=== PATIENT | female | born 1940 | race Caucasian/White ===

== ENCOUNTER 2017-01-17 19:29 | Inpatient (IN) | payer MEDICARE, OTHER ==
[~2017-01-17] VITALS: Ht 152.4 cm; Wt 58.1 kg
[~2017-01-17 19:29] MED LIST: BENA40TA2 PO; DILT180C73 PO; LEVO75TA7 PO; PRAV20TA4 PO
[2017-01-17] MEDS ORDERED: IV NS 0.9% 500 ML BAG IV ONE (20:00)
[2017-01-17 20:13] LABS: BASOPHILS % (AUTO) 0.3 % (0.0-2.0); EOSINOPHILS # (AUTO) 0.1 /CMM (0.0-0.7); EOSINOPHILS % (AUTO) 2.2 % (0.0-6.0); HEMATOCRIT 45 % (33-45); HEMOGLOBIN 14.9 g/dL (11.5-14.8); LYMPHOCYTES # (AUTO) 1.6 /CMM (0.8-4.8); LYMPHOCYTES % (AUTO) 28.6 % (20.0-44.0); MEAN CORPUSCULAR HEMOGLOBIN 29 PG (26.0-33.0); MEAN CORPUSCULAR HGB CONC 33 g/dl (31.0-36.0); MEAN CORPUSCULAR VOLUME 87 fL (82-100); MONOCYTES # (AUTO) 0.6 /CMM (0.1-1.30); MONOCYTES % (AUTO) 10.4 % (2.0-12.0); NEUTROPHILS # (AUTO) 3.2 /CMM (1.8-8.9); NEUTROPHILS % (AUTO) 58.5 % (43.0-81.0); PLATELET COUNT (AUTO) 226 /CMM (150-450); RDW COEFFICIENT OF VARIATION 14.8 (11.5-15.0); RED BLOOD CELL COUNT(AUTO) 5.17 MIL/uL (4.0-5.2); WHITE BLOOD COUNT (AUTO) 5.5 K/uL (4.3-11.0)
[2017-01-17 20:21] LABS: CALCIUM, SERUM 9.4 mg/dL (8.5-10.1); CARBON DIOXIDE 35 mmol/L (21-32); CHLORIDE 104 mmol/L (98-107); CREATININE 0.9 mg/dL (0.6-1.3); GLUCOSE 200 mg/dL (74-106); SODIUM SERUM 142 mmol/L (136-145); UREA NITROGEN, BLOOD 29 mg/dL (7-18)
[2017-01-17 20:22] LABS: ALCOHOL, BLOOD < 3 mg/dL (0-0)
[2017-01-17 20:30] LABS: TROPONIN I < 0.017 ng/mL (0.00-0.056)
[2017-01-17] MEDS ORDERED: ACETAMINOPHEN 325 MG TABLET PO STA (21:06)
[2017-01-17] MEDS ORDERED: ACETAMINOPHEN 325 MG TABLET ONE (21:20)
[2017-01-17] MEDS ORDERED: MAGNESIUM HYDROXIDE 30 ML UDC PO PRN (22:30)
[2017-01-17] MEDS ORDERED: MAG HYDROX/AL HYDROX/SIMETH 30 ML UDC PO PRN (22:30)
--- NOTE | 2017-01-17 22:30 | NUR ---
GPS WARPMAN NOTES: ADMITTED A 76 YO FEMALE FROM HOME, BROUGHT IN BY DAUGHTER TO THE EMERGENCY DEPT OF [facility]. PATIENT PLACED ON 5150 HOLD FOR GRAVE DISABILITY. PER HOLD, THE PATIENT HAS BEEN INCREASINGLY CONFUSED AND PROGRESSIVELY DECLINING OVER THE PAST SEVERAL WEEKS. , PATIENT IS CONFUSED, DISORGANIZED, DISORIENTED, HAS DIFFICULTY PERFORMING SIMPLE TASKS, NOT BEING ABLE TO TAKE CARE OF HERSELF, ASLEEP ALL THE TIME, NOT EATING OR DRINKING, SHORT ATTENTION SPAN AND CANNOT FOCUS. PATIENT WAS BROUGHT IN THE UNIT VIA GURNEY. DAUGHTER JORGE CAME WITH THE PATIENT. PATIENT THEN USHERED TO THE BED AND CHANGED TO A PATIENT'S GOWN. UPON FACE TO FACE ASSESSMENT,PATIENT PRESENTS AN APPROPRIATE AFFECT, ALERT AND ORIENTED X2-3, WITH NOTED EPISODES OF CONFUSION, DISHEVELED AND UNKEMPT. TALKS ABOUT A CERTAIN TOPIC THEN JUMPS TO ANOTHER. SHE ADMITS TO BEING ANXIOUS AND FEARFUL IN THE PRESENCE OF DOCTORS AND NURSES, HENCE THE REASON WHY SHE HAS HIGH BP READING. BELONGINGS AND CONTRABAND CHECKED. SKIN AND BODY ASSESSMENT DONE. NOTED SOME SCABS IN DIFFERENT BODY PARTS HOWEVER, NO OPEN WOUND NOTED THIS TIME. PICTURES TAKEN AND PLACED IN THE CHART. PER PATIENT'S DAUGHTER JORGE, PATIENT HAS NO SIGNIFICANT MEDICAL PROBLEMS AND IS ONLY DEALING WITH BIPOLAR AND ANXIETY PSYCHIATRIC PROBLEMS UNDER THE CARE OF DR. IGNACIO VALIENTE. ORIENTATION TO UNIT RULES POLICIES AND CARE PLANS DONE. BP OF PATIENT CHECKED 231/87 HR OF 67, O2 SAT-97% TEMP OF 98.7 RR-19. PATIENT THEN MADE TO SETTLE IN THE ROOM. MED RECONCILIATION DONE. Q15 MIN CHECKS INITIATED. SAFETY AND FALL PRECAUTIONS OBSERVED. CALL SEXTON PLACED WITHIN HER REACH, PROVIDED HER WITH WATER AND ENCOURAGED MORE ORAL FLUID INTAKE. CARE PLAN INITIATED. AMBIEN 5 MG GIVEN AT [address] VALIENTE'S INITIAL ORDER. RECHECK OF PATIENTS BLOOD PRESSURE AT 0100- 213/88 WITH A HR OF 65, PER PATIENT IS HAS BEEN THIS HIGH BECAUSE OF HER BEING IN THE HOSPITAL AND WITH DOCTORS AROUND. PATIENT DOES NOT HAVE ANY OTHER COMPLAINS THIS TIME. NO PAIN, NO NUMBNESS, NO UNUSUAL SENSATION THIS TIME. SAFETY ENVIRONMENTAL CHECK DONE. WILL MONITOR PATIENT FOR MOOD, SAFETY AND BEHAVIOR.
[2017-01-17] MEDS ORDERED: ZOLPIDEM TARTRATE 5 MG TABLET ONE (23:35)
[2017-01-17] MEDS: ZOLPIDEM TARTRATE 5 MG TABLET PO PRN (23:38)
[2017-01-17] MEDS ORDERED: BUPR75TA8 PO (23:52)
[2017-01-17] MEDS ORDERED: DIVA500T7 PO (23:52)
[2017-01-17] MEDS ORDERED: DIVA250T6 PO (23:52)
[2017-01-17] MEDS ORDERED: OLAN5TAB3 PO (23:52)
[2017-01-18] MEDS ORDERED: ZOLPIDEM TARTRATE 5 MG TABLET ONE (02:17)
[2017-01-18] MEDS ORDERED: ACETAMINOPHEN 325 MG TABLET ONE (02:18)
[2017-01-18] MEDS: ZOLPIDEM TARTRATE 5 MG TABLET PO PRN (02:21)
[2017-01-18] MEDS: ACETAMINOPHEN 325 MG TABLET PO PRN (02:22)
[2017-01-18 08:00] VITALS: BP 199/95
[2017-01-18 08:08] LABS: CREATININE 0.6 mg/dL (0.6-1.3)
[2017-01-18 08:17] LABS: CHOLESTEROL 181 mg/dL (<200); HDL CHOLESTEROL 74 mg/dL (40-60); LDL 85 mg/dL (0-99); TRIGLYCERIDES 66 mg/dL (30-150)
[2017-01-18] MEDS: LISINOPRIL (20MG) 20 MG TABLET PO SCH (11:01)
[2017-01-18] MEDS: AMLODIPINE BESYLATE 10 MG TABLET PO SCH (11:01)
--- NOTE | 2017-01-18 11:56 | NUR ---
GPS RN NOTES/ PATIENT BP RETAKEN STILL BP HIGH LEFT ARM 206/73, P-62, RIGHT ARM BP -200/77, -63, PATIENT HAS NO S/S OF HYPERTENSION, NOTIFIED DR ROGERS, AND GET NEW ORDER CLONIDINE 0.3 MG PO QID, ORDER TAKEN, AND CARRIED OUT.
[2017-01-18] MEDS: CLONIDINE HCL 0.1 MG TABLET PO SCH ×3 (12:12→20:11)
[2017-01-18 13:57] VITALS: BP 113/58
[2017-01-18] MEDS: ARIPIPRAZOLE 5 MG TABLET PO SCH (13:57)
--- NOTE | 2017-01-18 13:58 | NUR ---
GPS RN NOTES RECHECKED PATIENT BP 113/58, P-62, R-18, O2 -95 ROOM AIR, PATIENT RESTING IN THE BED , NO ACUTE DISTRESS, NO RESPIRATORY DISTRESS, SAFETY PRECAUTION MAINTAINED ALL THE TIME, CALL SEXTON NEAR TO REACH, ENCOURAGED TO INCREASE FLUID INTAKE.
[2017-01-18 16:00] VITALS: BP 118/60
--- NOTE | 2017-01-18 19:33 | NUR ---
GPS/RN NOTE: PATIENT RESTING IN BED, DAUGHTER JORGE VISITS. NO APPARENT DISTRESS NOTED. AWAKE, ALERT, ORIENTED X 2-3.
[2017-01-18 20:10] VITALS: BP 120/62
[2017-01-18] MEDS ORDERED: DIVALPROEX SODIUM 250 MG TABLET.DR PO SCH (22:00)
[2017-01-18] MEDS ORDERED: DIVALPROEX SODIUM 500 MG TABLET.DR PO SCH (22:00)
[2017-01-19 08:00] VITALS: BP 160/89
[2017-01-19] MEDS: LEVOTHYROXINE SODIUM 75 MCG TABLET PO SCH (08:43)
[2017-01-19] MEDS: AMLODIPINE BESYLATE 10 MG TABLET PO SCH (08:43)
[2017-01-19] MEDS: ARIPIPRAZOLE 5 MG TABLET PO SCH (08:44)
[2017-01-19] MEDS: DILTIAZEM HCL CD 180 MG PO SCH (08:44)
[2017-01-19] MEDS: CLONIDINE HCL 0.1 MG TABLET PO SCH ×4 (09:00→21:00)
[2017-01-19] MEDS ORDERED: ATORVASTATIN 10 MG TABLET PO SCH (09:00)
--- NOTE | 2017-01-19 09:08 | NUR ---
Initial discharge plan: Pt. resides with her daughter, Leora at [id number] [address] and wants to return upon discharge. SW spoke with pt's daughter, Leora [phone] , who confirmed that the patient is able to return home and she will pick him up when ready. FLIP will follow up with MD and will arrange for a safe and proper discharge.
[2017-01-19] MEDS: BENAZEPRIL HCL 20 MG TABLET PO SCH (11:45)
--- NOTE | 2017-01-19 14:30 | NUR ---
george held x [address] alatorre in to see pt.
[2017-01-19 16:00] VITALS: BP 142/57
[2017-01-19] MEDS: LISINOPRIL (20MG) 20 MG TABLET PO SCH (17:49)
[2017-01-19 19:47] LABS: BILIRUBIN,DIRECT 0.1 mg/dL (0.0-0.2); BILIRUBIN,TOTAL 0.3 mg/dL (0.2-1.0)
[2017-01-19 19:48] LABS: ALBUMIN 3.1 g/dL (3.4-5.0); TOTAL PROTEIN, SERUM 6.6 g/dL (6.4-8.2)
[2017-01-19 20:00] VITALS: BP 144/63
[2017-01-19 20:39] VITALS: BP 144/63
[2017-01-19] MEDS: DIVALPROEX SODIUM 500 MG TABLET.DR PO SCH (21:12)
--- NOTE | 2017-01-19 21:14 | NUR ---
GPS/LAB SUPPORT TECHNICIAN NOTES: PT. REFUSED HS CLONIDINE 0.3MG PO ORDERED. OFFERED 3X. EXPLAINED RISK AND BENEFITS. PT. STILL REFUSED. NO DISTRESS NOTED. VS WITHIN NORMAL LIMITS. WILL CONTINUE TO MONITOR.
[2017-01-20 08:00] VITALS: BP 176/71
[2017-01-20] MEDS: LEVOTHYROXINE SODIUM 75 MCG TABLET PO SCH (08:11)
[2017-01-20] MEDS: ARIPIPRAZOLE 5 MG TABLET PO SCH (08:12)
[2017-01-20] MEDS: DILTIAZEM HCL CD 180 MG PO SCH (08:13)
[2017-01-20] MEDS: LISINOPRIL (20MG) 20 MG TABLET PO SCH (08:13)
[2017-01-20] MEDS: BENAZEPRIL HCL 20 MG TABLET PO SCH (08:13)
[2017-01-20] MEDS: AMLODIPINE BESYLATE 10 MG TABLET PO SCH (08:13)
[2017-01-20] MEDS ORDERED: VENLAFAXINE XR 75 MG CAP.SR.24H PO SCH (09:00)
[2017-01-20] MEDS ORDERED: VENLAFAXINE XR 37.5 MG CAP.SR.24H PO SCH (09:00)
[2017-01-20] MEDS: CLONIDINE HCL 0.1 MG TABLET PO SCH (09:45)
--- NOTE | 2017-01-20 09:45 | NUR ---
CO SUPERVISOR GROUNDS AND LANDSCAPE-NOTES DR. PEACE IN THE UNIT AT THIS TIME AND VERIFIED CLONIDINE ORDER . PER MD WILL CONTINUE GIVING CLONIDINE ORDER WITH OTHER HTN MEDICATIONS.
--- NOTE | 2017-01-20 10:09 | NUR ---
CHLORINE CELLS OPERATOR-NOTES EFFEXOR Xr 37.5MG P.O NOT ADMINISTER. MEDICATIONS COMES WITH 75MG CAPSULE. PHARMACIES ( [facility] ) MADE AWARE AND STATED " I NEEDS TO CHECK". STILL AWAITING.
[2017-01-20] MEDS: METOPROLOL TARTRATE 25 MG TABLET PO SCH ×2 (11:00→21:00)
[2017-01-20 11:41] VITALS: BP 100/51
--- NOTE | 2017-01-20 12:09 | NUR ---
JIVE DEVELOPER-NOTES DR. PEACE MADE AWARE OF PATIENT BP OF 100/51 AND PULSE 56 AFTER GIVEN ALL HTN MEDICATIONS INCLUDING CLONIDINE 0.3MG P.O WITH THE ORDER TO CHANGE CLONIDINE 0.3MG P.O TO PRN FOR SBP > 170. NOTED AND CARRIED OUT.
[2017-01-20] MEDS: VENLAFAXINE XR 37.5 MG CAP.SR.24H PO SCH (12:20)
[2017-01-20] MEDS ORDERED: CLONIDINE HCL 0.1 MG TABLET PO PRN (12:30)
--- NOTE | 2017-01-20 14:12 | NUR ---
DR. VALIENTE CAME IN THE UNIT AND EXAMINED PT. AND ORDERED 1:1
[2017-01-20 16:00] VITALS: BP 119/50
[2017-01-20 21:00] VITALS: BP 115/60
[2017-01-20] MEDS: DIVALPROEX SODIUM 500 MG TABLET.DR PO SCH (21:23)
[2017-01-21 08:00] VITALS: BP 137/58
[2017-01-21] MEDS: LISINOPRIL (20MG) 20 MG TABLET PO SCH (09:00)
[2017-01-21] MEDS: AMLODIPINE BESYLATE 10 MG TABLET PO SCH (09:00)
[2017-01-21] MEDS: DILTIAZEM HCL CD 180 MG PO SCH (09:00)
[2017-01-21] MEDS: METOPROLOL TARTRATE 25 MG TABLET PO SCH ×2 (09:00→21:40)
[2017-01-21] MEDS: BENAZEPRIL HCL 20 MG TABLET PO SCH (09:00)
[2017-01-21] MEDS: VENLAFAXINE XR 37.5 MG CAP.SR.24H PO SCH (09:17)
[2017-01-21] MEDS: LEVOTHYROXINE SODIUM 75 MCG TABLET PO SCH (09:17)
[2017-01-21] MEDS ORDERED: LORAZEPAM 0.5 MG TABLET PO PRN (13:00)
[2017-01-21 16:00] VITALS: BP_SYST 142; BP_SYST 166; BP_DIAS 55; BP_DIAS 80
[2017-01-21 20:00] VITALS: BP 142/58
[2017-01-21] MEDS: DIVALPROEX SODIUM 500 MG TABLET.DR PO SCH (21:41)
[2017-01-22 07:07] VITALS: BP 142/66
--- NOTE | 2017-01-22 07:16 | NUR ---
RN GPS NOTES PATIENT RESTING HER BED, NO ACUTE DISTRESS NOTED ,NO CHANGES IN STATUS. ALL NEEDS ATTENDED ANTICIPATED . REMANIED AT BED SITE SITTER 1:1 FOR SAFETY, PT. COMPLY WITH DUE MEDS ,WILL ENDORSE TO NEXT SHIFT FOR CONTINUITY CARE
[2017-01-22 08:00] VITALS: BP 171/75
[2017-01-22] MEDS: LEVOTHYROXINE SODIUM 75 MCG TABLET PO SCH (08:04)
[2017-01-22] MEDS: METOPROLOL TARTRATE 25 MG TABLET PO SCH ×2 (08:05→20:26)
[2017-01-22] MEDS: LISINOPRIL (20MG) 20 MG TABLET PO SCH (08:05)
[2017-01-22] MEDS: VENLAFAXINE XR 37.5 MG CAP.SR.24H PO SCH (08:06)
[2017-01-22] MEDS: DILTIAZEM HCL CD 180 MG PO SCH (08:06)
[2017-01-22] MEDS: AMLODIPINE BESYLATE 10 MG TABLET PO SCH (08:06)
[2017-01-22] MEDS: BENAZEPRIL HCL 20 MG TABLET PO SCH (08:06)
[2017-01-22 15:53] VITALS: BP 118/53
[2017-01-22 20:00] VITALS: BP 137/57
[2017-01-22] MEDS: DIVALPROEX SODIUM 500 MG TABLET.DR PO SCH (21:31)
--- NOTE | 2017-01-23 01:19 | NUR ---
Pt has been with depressed mood & flat affect. She has mostly been selectively mute since last night.
[2017-01-23 07:11] LABS: BASOPHILS % (AUTO) 0.6 % (0.0-2.0); EOSINOPHILS # (AUTO) 0.1 /CMM (0.0-0.7); EOSINOPHILS % (AUTO) 2.1 % (0.0-6.0); HEMATOCRIT 39 % (33-45); LYMPHOCYTES # (AUTO) 2.6 /CMM (0.8-4.8); LYMPHOCYTES % (AUTO) 37.3 % (20.0-44.0); MEAN CORPUSCULAR HEMOGLOBIN 29 PG (26.0-33.0); MEAN CORPUSCULAR HGB CONC 34 g/dl (31.0-36.0); MEAN CORPUSCULAR VOLUME 87 fL (82-100); MONOCYTES # (AUTO) 0.7 /CMM (0.1-1.30); MONOCYTES % (AUTO) 9.6 % (2.0-12.0); NEUTROPHILS # (AUTO) 3.5 /CMM (1.8-8.9); NEUTROPHILS % (AUTO) 50.4 % (43.0-81.0); PLATELET COUNT (AUTO) 178 /CMM (150-450); RDW COEFFICIENT OF VARIATION 15.7 (11.5-15.0); RED BLOOD CELL COUNT(AUTO) 4.42 MIL/uL (4.0-5.2)
[2017-01-23 07:32] LABS: CALCIUM, SERUM 9.1 mg/dL (8.5-10.1); CARBON DIOXIDE 33 mmol/L (21-32); CHLORIDE 106 mmol/L (98-107); CREATININE 0.4 mg/dL (0.6-1.3); GLUCOSE 86 mg/dL (74-106); POTASSIUM 3.5 mmol/L (3.5-5.1); SODIUM SERUM 142 mmol/L (136-145); UREA NITROGEN, BLOOD 29 mg/dL (7-18)
[2017-01-23 08:18] VITALS: BP 150/57
[2017-01-23] MEDS: LISINOPRIL (20MG) 20 MG TABLET PO SCH (08:55)
[2017-01-23] MEDS: DILTIAZEM HCL CD 180 MG PO SCH (08:56)
[2017-01-23] MEDS: LEVOTHYROXINE SODIUM 75 MCG TABLET PO SCH (08:56)
[2017-01-23] MEDS: AMLODIPINE BESYLATE 10 MG TABLET PO SCH (08:56)
[2017-01-23] MEDS: METOPROLOL TARTRATE 25 MG TABLET PO SCH ×2 (08:57→21:00)
[2017-01-23] MEDS: VENLAFAXINE XR 37.5 MG CAP.SR.24H PO SCH (08:57)
[2017-01-23] MEDS: BENAZEPRIL HCL 20 MG TABLET PO SCH (08:58)
[2017-01-23 16:00] VITALS: BP 133/71
[2017-01-23 19:42] VITALS: BP 150/57
[2017-01-23] MEDS: DIVALPROEX SODIUM 500 MG TABLET.DR PO SCH (21:30)
[2017-01-24] MEDS: LEVOTHYROXINE SODIUM 75 MCG TABLET PO SCH (07:30)
[2017-01-24 08:00] VITALS: BP_SYST 147; BP_SYST 171; BP_DIAS 57; BP_DIAS 62
[2017-01-24] MEDS: LISINOPRIL (20MG) 20 MG TABLET PO SCH (08:54)
[2017-01-24] MEDS: DILTIAZEM HCL CD 180 MG PO SCH (08:54)
[2017-01-24] MEDS: VENLAFAXINE XR 37.5 MG CAP.SR.24H PO SCH (08:54)
[2017-01-24] MEDS: AMLODIPINE BESYLATE 10 MG TABLET PO SCH (08:55)
[2017-01-24] MEDS: BENAZEPRIL HCL 20 MG TABLET PO SCH (08:55)
[2017-01-24] MEDS: METOPROLOL TARTRATE 25 MG TABLET PO SCH ×2 (09:26→21:00)
[2017-01-24 16:00] VITALS: BP 147/57
[2017-01-24 20:16] VITALS: BP 147/59
--- NOTE | 2017-01-24 21:52 | NUR ---
GPS RN: PATIENT IN THE ROOM, QUIET AND DEPRESSED. LOPRESSOR MEDICATION NOT GIVEN, PATIENTS DIASTOLIC AND HEART RATE IS LOW. BP 147/59, HEART RATE OF 51. EXPLAINED TO PATIENT THE REASON FOR NOT ADMINISTERING IT. PATIENT VERBALIZED UNDERSTANDING. WILL CONTINUE TO MONITOR PATIENT'S STATUS.
[2017-01-24] MEDS: DIVALPROEX SODIUM 250 MG TABLET.DR PO SCH (22:00)
[2017-01-25 08:00] VITALS: BP 144/59
[2017-01-25] MEDS: DILTIAZEM HCL CD 180 MG PO SCH (09:11)
[2017-01-25] MEDS: VENLAFAXINE XR 37.5 MG CAP.SR.24H PO SCH (09:11)
[2017-01-25] MEDS: LEVOTHYROXINE SODIUM 75 MCG TABLET PO SCH (09:11)
[2017-01-25] MEDS: LISINOPRIL (20MG) 20 MG TABLET PO SCH (09:11)
[2017-01-25] MEDS: AMLODIPINE BESYLATE 10 MG TABLET PO SCH (09:11)
[2017-01-25] MEDS: METOPROLOL TARTRATE 25 MG TABLET PO SCH ×2 (09:12→21:25)
[2017-01-25] MEDS: BENAZEPRIL HCL 20 MG TABLET PO SCH (09:12)
[2017-01-25 15:58] VITALS: BP 147/56
[2017-01-25 20:25] VITALS: BP 142/56
[2017-01-25] MEDS: DIVALPROEX SODIUM 250 MG TABLET.DR PO SCH (21:24)
[2017-01-26 08:07] VITALS: BP 141/54
[2017-01-26] MEDS: VENLAFAXINE XR 37.5 MG CAP.SR.24H PO SCH (08:41)
[2017-01-26] MEDS: DILTIAZEM HCL CD 180 MG PO SCH (08:41)
[2017-01-26] MEDS: LISINOPRIL (20MG) 20 MG TABLET PO SCH (08:41)
[2017-01-26] MEDS: AMLODIPINE BESYLATE 10 MG TABLET PO SCH (08:42)
[2017-01-26] MEDS: METOPROLOL TARTRATE 25 MG TABLET PO SCH ×2 (08:42→21:29)
[2017-01-26] MEDS: LEVOTHYROXINE SODIUM 75 MCG TABLET PO SCH (08:42)
[2017-01-26] MEDS: BENAZEPRIL HCL 20 MG TABLET PO SCH (08:43)
[2017-01-26 16:11] VITALS: BP 137/54
[2017-01-26] MEDS: LORAZEPAM 0.5 MG TABLET PO SCH (17:35)
[2017-01-26 20:09] VITALS: BP 137/59
[2017-01-26] MEDS: DIVALPROEX SODIUM 250 MG TABLET.DR PO SCH (21:25)
[2017-01-26 21:29] VITALS: BP 137/66
[2017-01-26 21:31] VITALS: BP 137/66
[2017-01-27 08:00] VITALS: BP 133/53
[2017-01-27] MEDS: LEVOTHYROXINE SODIUM 75 MCG TABLET PO SCH (08:28)
[2017-01-27] MEDS: DILTIAZEM HCL CD 180 MG PO SCH (08:28)
[2017-01-27] MEDS: LISINOPRIL (20MG) 20 MG TABLET PO SCH (08:29)
[2017-01-27] MEDS: AMLODIPINE BESYLATE 10 MG TABLET PO SCH (08:29)
[2017-01-27] MEDS: METOPROLOL TARTRATE 25 MG TABLET PO SCH ×2 (08:29→21:37)
[2017-01-27] MEDS: BENAZEPRIL HCL 20 MG TABLET PO SCH (08:30)
[2017-01-27] MEDS: VENLAFAXINE XR 37.5 MG CAP.SR.24H PO SCH (08:31)
[2017-01-27] MEDS: LORAZEPAM 0.5 MG TABLET PO SCH ×2 (08:37→16:28)
[2017-01-27 16:00] VITALS: BP 131/59
[2017-01-27 20:00] VITALS: BP 143/50
[2017-01-27] MEDS: ZOLPIDEM TARTRATE 5 MG TABLET PO PRN (21:56)
[2017-01-27] MEDS ORDERED: DIVALPROEX SODIUM 250 MG TABLET.DR PO SCH (22:00)
[2017-01-28 08:24] VITALS: BP 156/50
[2017-01-28] MEDS: LISINOPRIL (20MG) 20 MG TABLET PO SCH (08:45)
[2017-01-28] MEDS: BENAZEPRIL HCL 20 MG TABLET PO SCH (08:45)
[2017-01-28] MEDS: LEVOTHYROXINE SODIUM 75 MCG TABLET PO SCH (08:45)
[2017-01-28] MEDS: DILTIAZEM HCL CD 180 MG PO SCH (08:45)
[2017-01-28] MEDS: AMLODIPINE BESYLATE 10 MG TABLET PO SCH (08:46)
[2017-01-28] MEDS: LORAZEPAM 0.5 MG TABLET PO SCH ×2 (08:46→16:45)
[2017-01-28] MEDS: VENLAFAXINE XR 37.5 MG CAP.SR.24H PO SCH (08:46)
[2017-01-28] MEDS: METOPROLOL TARTRATE 25 MG TABLET PO SCH ×2 (08:46→21:00)
[2017-01-28] MEDS: ACETAMINOPHEN 325 MG TABLET PO PRN ×2 (08:50→16:52)
[2017-01-28 16:19] VITALS: BP 105/70
[2017-01-28 20:00] VITALS: BP 117/44
[2017-01-28] MEDS: ZOLPIDEM TARTRATE 5 MG TABLET PO PRN (21:30)
[2017-01-29 08:00] VITALS: BP 157/59
[2017-01-29] MEDS: BENAZEPRIL HCL 20 MG TABLET PO SCH (08:42)
[2017-01-29] MEDS: VENLAFAXINE XR 37.5 MG CAP.SR.24H PO SCH (08:42)
[2017-01-29] MEDS: LISINOPRIL (20MG) 20 MG TABLET PO SCH (08:42)
[2017-01-29] MEDS: LEVOTHYROXINE SODIUM 75 MCG TABLET PO SCH (08:42)
[2017-01-29] MEDS: LORAZEPAM 0.5 MG TABLET PO SCH ×2 (08:42→16:03)
[2017-01-29] MEDS: METOPROLOL TARTRATE 25 MG TABLET PO SCH ×2 (08:43→21:37)
[2017-01-29] MEDS: AMLODIPINE BESYLATE 10 MG TABLET PO SCH (08:43)
[2017-01-29] MEDS: DILTIAZEM HCL CD 180 MG PO SCH (08:50)
[2017-01-29 16:04] VITALS: BP 121/52
[2017-01-29 20:00] VITALS: BP 121/50
[2017-01-29] MEDS: DIVALPROEX SODIUM 250 MG TABLET.DR PO SCH (21:38)
[2017-01-29] MEDS: ZOLPIDEM TARTRATE 5 MG TABLET PO PRN (21:38)
[2017-01-30 08:00] VITALS: BP 150/59
[2017-01-30] MEDS: AMLODIPINE BESYLATE 10 MG TABLET PO SCH (08:22)
[2017-01-30] MEDS: LEVOTHYROXINE SODIUM 75 MCG TABLET PO SCH (08:22)
[2017-01-30] MEDS: LORAZEPAM 0.5 MG TABLET PO SCH ×2 (08:22→16:31)
[2017-01-30] MEDS: DILTIAZEM HCL CD 180 MG PO SCH (08:23)
[2017-01-30] MEDS: METOPROLOL TARTRATE 25 MG TABLET PO SCH ×2 (08:23→20:47)
[2017-01-30] MEDS: LISINOPRIL (20MG) 20 MG TABLET PO SCH (08:24)
[2017-01-30] MEDS: VENLAFAXINE XR 37.5 MG CAP.SR.24H PO SCH (08:24)
[2017-01-30] MEDS: BENAZEPRIL HCL 20 MG TABLET PO SCH (08:24)
[2017-01-30 16:00] VITALS: BP 121/59
[2017-01-30 20:16] VITALS: BP 145/60
[2017-01-30] MEDS: DIVALPROEX SODIUM 250 MG TABLET.DR PO SCH (20:47)
[2017-01-30] MEDS: ACETAMINOPHEN 325 MG TABLET PO PRN (20:48)
--- NOTE | 2017-01-30 20:51 | NUR ---
GPS RN: PATIENT COMPLAINED OF MILD LOWER BACK PAIN, REQUESTED FOR TYLENOL 650 MG-GIVEN ORDERED. WILL CONTINUE TO MONITOR PATIENT'S PAIN STATUS.
[2017-01-30] MEDS: ZOLPIDEM TARTRATE 5 MG TABLET PO PRN (21:19)
[2017-01-30] MEDS ORDERED: DIVALPROEX SODIUM 250 MG TABLET.DR PO SCH (22:00)
[2017-01-31] MEDS: LEVOTHYROXINE SODIUM 75 MCG TABLET PO SCH (07:44)
[2017-01-31 07:53] VITALS: BP 146/54
[2017-01-31] MEDS: LISINOPRIL (20MG) 20 MG TABLET PO SCH (08:16)
[2017-01-31] MEDS: VENLAFAXINE XR 37.5 MG CAP.SR.24H PO SCH (08:16)
[2017-01-31] MEDS: DILTIAZEM HCL CD 180 MG PO SCH (08:16)
[2017-01-31] MEDS: AMLODIPINE BESYLATE 10 MG TABLET PO SCH (08:17)
[2017-01-31] MEDS: BENAZEPRIL HCL 20 MG TABLET PO SCH (08:17)
[2017-01-31] MEDS: LORAZEPAM 0.5 MG TABLET PO SCH ×2 (08:18→16:00)
[2017-01-31] MEDS: METOPROLOL TARTRATE 25 MG TABLET PO SCH ×2 (08:21→21:06)
[2017-01-31 15:44] VITALS: BP 117/55
[2017-01-31 19:38] VITALS: BP 136/53
[2017-01-31] MEDS: DIVALPROEX SODIUM 250 MG TABLET.DR PO SCH (21:05)
[2017-01-31] MEDS: ZOLPIDEM TARTRATE 5 MG TABLET PO PRN (21:06)
[2017-02-01 08:00] VITALS: BP 157/58
[2017-02-01] MEDS: LORAZEPAM 0.5 MG TABLET PO SCH ×2 (08:12→16:23)
[2017-02-01] MEDS: LEVOTHYROXINE SODIUM 75 MCG TABLET PO SCH (08:12)
[2017-02-01] MEDS: VENLAFAXINE XR 37.5 MG CAP.SR.24H PO SCH (08:13)
[2017-02-01] MEDS: DILTIAZEM HCL CD 180 MG PO SCH (08:13)
[2017-02-01] MEDS: METOPROLOL TARTRATE 25 MG TABLET PO SCH (08:14)
[2017-02-01] MEDS: AMLODIPINE BESYLATE 10 MG TABLET PO SCH (08:14)
[2017-02-01] MEDS: BENAZEPRIL HCL 20 MG TABLET PO SCH (08:14)
[2017-02-01] MEDS: LISINOPRIL (20MG) 20 MG TABLET PO SCH (08:15)
--- NOTE | 2017-02-01 14:44 | NUR ---
Discharge Note: Patient will be discharged to [id number] [id number] . Pt's daughter, Leora ([phone]) was informed and will pick her up via private vehicle. Patient and patient's daughter were agreeable with the discharge plan. Patient's mood and affect are appropriate. Patient denies suicidal and homicidal ideations. Patient will follow-up with her psychiatrist Dr. Frost ([phone]) [address] [place] [address] [address] [place] [address]. For smoking cessation patient was referred to [facility] [address] [place] [address] 02/07/17 at 5:30pm. Facilitated info to IDT team who are in agreement with discharge arrangement. The multidisciplinary exitcare form was done, printed, signed, and given to the patient.
--- NOTE | 2017-02-01 15:55 | NUR ---
print finishing worker faxed Home Health Order to [facility] (phone: [phone]/ ). print finishing worker will follow-up.
[2017-02-01 16:00] VITALS: BP 117/55
--- NOTE | 2017-02-01 19:00 | NUR ---
[id number]: PT IS 77 YEARS OLD FEMALE [place]CHARGE [place] HOME [place] [address] [place]. [address] IN STABLE CONDITION. COMPLIANT WITH MEDICATIONS, COOPERATIVE WITH TREATMENT PLANS. PT DENIES SI/HI AND INSTRUCTED TO GO TO THE CLOSEST ER IF DEVELOPING SI/HI. BEHAVIOR IMPROVED, PSYCHIATRIC TX PLANS MET, MEDICAL TX PLANS DEFERRED FOR CONTINUAL MONITORING. EDUCATED PT ABOUT AFTER CARE PLAN AND COPY PROVIDED. RETURNED PERSONAL BELONGINGS TO PT. MEDICATIONS RECONCILED DR. VALIENTE AND DR. SNOW. REPORT GIVEN TO DAUGHTER JORGE FOR CONTINUITY OF CARE. PT SIGNED DISCHARGE PAPERWORK. SKIN ASSESSMENT DONE. PT LEFT THE UNIT ACCOMPANIED BY STAFF AND DAUGHTER JORGE.
== END 2017-02-01 19:00 | disposition home or self-care (01) | DRG 881 ==
LOC: ER 19:31 → GPS 21:02
PROVIDERS: ADMIT Psychiatry & Neurology Psychiatry; ATTEND Psychiatry & Neurology Psychiatry
DX: F32.9 Major depressive disorder, single episode, unspecified (principal); G72.0 Drug-induced myopathy; E86.0 Dehydration; F29 Unspecified psychosis not due to a substance or known physiological condition; I10 Essential (primary) hypertension; Z88.5 Allergy status to narcotic agent; Z88.0 Allergy status to penicillin; Z88.8 Allergy status to other drugs, medicaments and biological substances; Z98.890 Other specified postprocedural states; Z73.6 Limitation of activities due to disability; Z79.899 Other long term (current) drug therapy; F41.9 Anxiety disorder, unspecified; E56.9 Vitamin deficiency, unspecified; E03.9 Hypothyroidism, unspecified; R26.9 Unspecified abnormalities of gait and mobility; G31.84 Mild cognitive impairment of uncertain or unknown etiology; T46.6X5A Adverse effect of antihyperlipidemic and antiarteriosclerotic drugs, initial encounter; Y92.009 Unspecified place in unspecified non-institutional (private) residence as the place of occurrence of the external cause; R62.7 Adult failure to thrive; F39 Unspecified mood [affective] disorder
CPT/HCPCS: 36415; 70450-TC; 71010-TC; 80048-TC; 80061-TC; 80076-TC; 80164-TC; 82550-TC; 82565-TC; 84443-TC; 84484-TC; 85025-TC; 87081-TC; A4606; G0480; J7040; Z7610